=== PATIENT | female | born 1985 | race Caucasian/White ===

== ENCOUNTER 2020-07-21 10:23 | Emergency (ER) | payer OTHER, SELFPAY ==
--- NOTE | ~2020-07-21 | CT_ITS ---
EXAMINATION: CT GI BLEEDING SCAN/ABDOMEN AND PELVIS CLINICAL INFORMATION: GI bleeding. Bright red blood. Question rectal bleeding COMPARISON: None TECHNIQUE: 5 mm thin axial and 2 minutes and coronal and sagittal images of abdomen and pelvis were obtained without and with 80 mL Omnipaque 350. DLP 805 FINDINGS: The lung bases are clear. The heart size is normal. The liver is homogeneous in density, normal size and shape. No focal lesion seen. No abnormal enhancement. No intrahepatic ductal dilatation. The gallbladder is contracted and appears unremarkable. Visualized spleen, pancreas and bilateral adrenal glands are symmetrical. There are bilateral nephrolithiasis. The largest radiopaque calculi midpole left kidney measures 4 mm and is 7 cm from the posterior skin line. Largest radiopaque calculi mid pole right kidney measures 6 mm and is approximately 6.1 cm from the posterior skin line. No caliectasis or hydronephrosis. Postcontrast there are symmetrical bilateral nephrograms with the kidneys appearing normal size and shape. No enhancing renal mass, cyst or hydronephrosis seen. The abdominal aorta is normal course and caliber. No retroperitoneal lymph nodes or mass seen. There is moderate scattered stool seen throughout the colon without distention. The small bowel loops are normal caliber. There is no inflammatory process seen in the abdomen. On postcontrast imaging there is no abnormal hypodense contrast or blood pooling seen within the rectum, sigmoid or the colon. There is a small umbilical hernia. The appendix lies in the right pelvis on axial image 60/90 and appears normal caliber. Imaging to the pelvis reveals no significant abnormality. The uterus is anteverted and retroflexed no lesion seen. There is no free fluid. Scattered phleboliths are seen in the pelvis. CT/CT gi bleed abd pel wo/w con IMPRESSION: No abnormal contrast extravasation seen in the rectum or sigmoid colon to suspect any bleed. Moderate constipation. Bilateral nephrolithiasis without caliectasis or hydronephrosis.
[2020-07-21 11:04] VITALS: BP 98/74; PULSE 90; RESP 16; TEMP 37; O2SAT 100; BMI 23.8
--- NOTE | 2020-07-21 13:12 | PC.NURSE ---
AMBULATORY TO MAIN ED RM 18, REPORT TO FELISHA DAVIS
[2020-07-21] MEDS: 0.9 % Sodium Chloride 1,000 ML 999 ML IVCONT (13:37)
[2020-07-21 13:40] LABS: MANUAL DIFF FLAG NO
[2020-07-21 13:43] LABS: Basophils Absolute Auto 0.1 X10*3/uL (0.0-0.2); Basophils Percent Auto 0.6 % (0-2); Eosinophils Absolute Auto 0.1 X10*3/uL (0.0-0.4); Eosinophils Percent Auto 1.5 % (0-4); Hematocrit 36.3 % (37-47); Hemoglobin 11.2 g/dl (12.0-16.0); Imm Gran Abs Auto 0.01 X10*3/uL (0.00-0.03); Imm Gran Pct Auto 0.1 % (0.0-0.4); Lymphocytes Absolute Auto 2.2 X10*3/uL (1.2-4.9); Lymphocytes Percent Auto 28.6 % (20-40); Mean Corpuscular HGB Conc 30.9 g/dl (31.0-35.0); Mean Corpuscular Hemoglobin 24.5 pg (27.0-33.0); Mean Corpuscular Volume 79.3 fL (80-98); Mean Platelet Volume 9.3 fL (9.4-12.3); Monocytes Absolute Auto 0.5 X10*3/uL (0.1-1.2); Monocytes Percent Auto 6.1 % (2-11); Neutrophils Absolute Auto 4.9 X10*3/uL (2.0-8.3); Neutrophils Percent Auto 63.1 % (45-73); Platelet Count 361 X10*3/uL (160-400); Red Blood Count 4.58 X10*6/uL (4.20-5.50); Red Cell Distribution Width 15.1 % (11.0-16.0); White Blood Count 7.8 X10*3/uL (4.8-10.8)
[2020-07-21 13:48] LABS: INTERNATIONAL NORM RATIO 1.1 (0.9-1.1); Prothrombin Time 13.2 SEC (10.8-13.0)
[2020-07-21 13:50] LABS: OBS Int Ctl Valid YES; OBS1 POSITIVE (NEGATIVE)
[2020-07-21 13:51] LABS: Partial Thromboplastin Time 32.5 SEC (24.1-38.0)
[2020-07-21 14:29] LABS: Alanine Aminotransferase 31 U/L (0-31); Albumin Level 4.4 g/dL (3.5-5.0); Alkaline Phosphatase 86 U/L (39-117); Anion Gap 11 (12-20); Aspartate Amino Transferase 17 U/L (5-31); Bilirubin Direct < 0.2 mg/dL (0.0-0.5); Bilirubin Total 0.5 mg/dL (0.0-1.0); Blood Urea Nitrogen 12 mg/dL (9-16); Calcium 9.3 mg/dL (8.4-10.2); Carbon Dioxide 26 mmol/L (22-29); Chloride 103 mmol/L (96-108); Creatinine Clr Calc Pharmacy 95.3; Estimated Glomerular Filt Rate > 60; Glucose Random 92 mg/dL (60-115); Potassium 4.4 mmol/L (3.3-5.1); Sodium 136 mmol/L (135-145); Total Protein 7.5 g/dL (6.5-8.0)
[2020-07-21 14:36] LABS: HCG Quantitative < 2 mIU/mL
[2020-07-21 14:48] VITALS: BP 110/74; PULSE 91; RESP 18; TEMP 37.1; O2SAT 100
--- NOTE | 2020-07-21 15:28 | ED_ITS ---
HPI - GI Bleed General Chief complaint: General Medical Stated complaint: rectal bleeding x 3 months Time Seen by Provider: 07/21/20 12:32 Source: patient Mode of arrival: ambulatory Limitations: no limitations History of Present Illness HPI Narrative: 34-year-old female with a past medical history of hemorrhoids pr esenting to the ED with complaints of rectal bleeding almost daily for the past 3 months with bright red blood mixed in the stools. Denies any fevers, chills, dizziness, headaches, abdominal pain, straining or constipation or diarrhea or any other symptoms complaints or concerns at this time. Denies using any Pepto- Bismol. Patient denies being on any blood thinners. Denies any rectal intercourse or trauma. MD complaint: blood streaked emesis and blood streaked stool Onset (ago): month(s) (Almost daily for the past 3 months) Pain Consistency: constant Severity: moderate Relieving factors: none Exacerbating factors: bowel movement Context: hemorrhoids Associated symptoms: denies other symptoms Treatments Prior to Arrival: none Related Data Previous Rx's Medication Instructions Recorded docusate sodium [Colace] 100 mg PO BID PRN #30 cap 07/21/20 hydrocortisone acetate [Anusol-HC] 25 mg MO BID #12 ea 07/21/20 Allergies Allergy/AdvReac Type Severity Reaction Status Date / Time No Known Allergies Allergy Unknown Verified 07/21/20 11:10 Review of Systems Review of Systems: Constitutional : No Weight loss, No Fever, No Chills, No Night Sweats, No Fatigue, No Malaise ENT/Mouth: No ear pain, No sore throat, No Difficulty swallowing Cardiovascular : No Chest Pain, No SOB, No Dyspnea on Exertion, No Orthopnea, NoEdema, No Palpitations Respiratory : No Cough, No Sputum, No Wheezing, No Dyspnea Gastrointestinal : + Hematochezia, No Nausea, No Vomiting, No Diarrhea, Noabdominal Pain, No Melena Genitourinary : No irregular bleeding, No Dysuria, No Urinary Frequency, No Hematuria,No Urinary Incontinence, No Urgency, No Flank Pain Musculoskeletal : No joint pain, No Myalgias, No Joint Swelling Skin : No Skin Lesions, No rash Neuro : No Weakness, No Numbness, No Paresthesias, No Loss of Consciousness, NoDizziness, No Headache Psych : No Social Issues, Heme/Lymph: No Bruising, No Bleeding,No Lymphadenopathy Endocrine : No Polyuria, No Polydipsia, No Temperature Intolerance Yes all other systems are reviewed and are negative [facility] Past Medical History Attestation statement: The following information was validated with the patient. Medical History Hemorrhoids Social History Social History Smoked in Last 30 Days: No Use of substances other than those prescribed or required for medical reasons: No Advance Directives: No Advance Directives Information Provided: No Physical Exam Vital Signs: Vital Signs: Last Vital Signs Temp 98.7 F 07/21/20 14:48 Pulse 91 07/21/20 14:48 Resp 18 07/21/20 14:48 BP 110/74 07/21/20 14:48 Pulse Ox 100 07/21/20 14:48 Body Mass Index 23.8 vital signs have been reviewed as normal and appeared to be correct. Blood pressure normal. Heart rate normal. Respiration rate normal. Temperature normal. Oxygen saturation normal. Appearance: Alert. Oriented X3. No acute distress. Head: Normal external exam. Normocephalic. Eyes: PERRLA. EOMI. Conjunctiva and sclera normal. Eyelids normal. ENT: Pharynx normal. Uvula midline. Moist mucous membranes. Neck: Normal inspection. Neck supple. FROM. No adenopathy. No meningeal signs. CVS: Normal heart rate and rhythm. Heart sound normal. No murmurs noted. Pulses normal throughout. Respiratory: No respiratory distress. Painless inspiration. Breath sounds normal. No wheezes/rales/rhonchi noted. Chest nontender. No accessory muscle usage noted or decreased air movement noted. Abdomen: Soft and nontender. Nondistended. No guarding. No rigidity. Bowel sounds normal in all 4 quadrants. No distention noted. No organomegaly noted. No visible injury noted. No rebound tenderness. Negative Rovsing sign. Negative obturator's sign. Negative psoas sign. Negative Kemp sign. : Chaperoned by FELISHA Hernandez. Normal external exam. No external hemorrhoids or fissure noted. Normal rectal tone/sphincter. Not consistent with rectal prolapse. No fecal impaction noted. No lesions noted. No fistula/excoriations/mass/laceration/tenderness noted. Normal external visual inspection. Heme-positive stool with brown color stools. Patient had bright red blood on rectal exam mixed in with stool. Back: No CVA tenderness. Full range of motion noted. Skin: Skin warm and dry. Normal skin color. Normal skin turgor. No rashes/lesions/lacerations noted. Extremities: Extremities exhibit normal range of motion. Extremities nontender. Neuro: Oriented X 3. No motor deficit. No sensory deficit. Reflexes normal. Course Course Course Narrative: 4pm 34-year-old female with a past medical history of hemorrhoids presenting to the ED with complaints of rectal bleeding almost daily for the past 3 months with bright red blood mixed in the stools. - on exam patient is alert and oriented x3. Not in any acute distress. Vital signs are stable within normal limits. Lungs clear to auscultation. CV RRR. Abdomen is soft and nontender. Rectal exam patient has normal rectal tone/normal sphincter. No fissures/external hemorrhoids noted. Questioning internal bleeding hemorrhoids. Patient positive for stool occult. - labs obtained and patient with mild anemia no prior labs to compare to at this time. Positive stool occult. Otherwise all other labs are within normal limits. UA had 40 ketones otherwise no evidence of UTI and negative serum quant and UHCG. Patient received 1 L of IV fluids. Is tolerating secretions well. - awaiting CT scan of abdomen and pelvis with IV contrast with GI bleed protocol will re-evaluate. Reevaluation(s) Reevaluation #1: - CT scan of abdomen and pelvis revealed constipation and bilateral kidney stones otherwise no other acute processes. Patient with possibly internal hemorrhoids versus stool occult bleed. Will DC home with s tool softener and hemorrhoid cream and GI referral. I also instructed the patient to return if worsening symptoms or any new symptoms arrive and to follow-up with GI. Patient understands agrees with this plan. Time: 16:26 MDM - GI Bleed Differential Diagnosis Differential diagnosis: Likely hemorrhoids, Lower gastrointestinal hemorrhage, hematochezia and anal fissure Medical Records Attestation: I reviewed the patient's medical records. Lab Data Attestation: I reviewed the patient's lab results. Result diagrams: 07/21/20 13:35 07/21/20 13:59 Labs: Lab Results 07/21/20 07/21/20 07/21/20 Range/Units 13:35 13:35 13:35 WBC 7.8 (4.8-10.8) X10*3/uL RBC 4.58 (4.20-5.50) X10*6/uL Hgb 11.2 L (12.0-16.0) g/dl Hct 36.3 L (37-47) % MCV 79.3 L (80-98) fL MCH 24.5 L (27.0-33.0) pg MCHC 30.9 L (31.0-35.0) g/dl RDW 15.1 (11.0-16.0) % Plt Count 361 (160-400) X10*3/uL MPV 9.3 L (9.4-12.3) fL Immature Gran % (Auto) 0.1 (0.0-0.4) % Neut % (Auto) 63.1 (45-73) % Lymph % (Auto) 28.6 (20-40) % [place] % (Auto) 6.1 (2-11) % Eos % (Auto) 1.5 (0-4) % Baso % (Auto) 0.6 (0-2) % Lymph # (Auto) 2.2 (1.2-4.9) X10*3/uL [place] # (Auto) 0.5 (0.1-1.2) X10*3/uL Eos # (Auto) 0.1 (0.0-0.4) X10*3/uL Baso # (Auto) 0.1 (0.0-0.2) X10*3/uL Abs Immat Gran (auto) 0.01 (0.00-0.03) X10*3/uL Absolute Neuts (auto) 4.9 (2.0-8.3) X10*3/uL Absolute Nucleated RBC 0.000 (0.0-0.012) X10*3/uL Nucleated RBC % (auto) 0.0 (0.0-0.2) /100WBC PT 13.2 H (10.8-13.0) SEC INR 1.1 (0.9-1.1) APTT 32.5 (24.1-38.0) SEC Sodium (135-145) mmol/L Potassium (3.3-5.1) mmol/L Chloride (96-108) mmol/L Carbon Dioxide (22-29) mmol/L Anion Gap (12-20) BUN (9-16) mg/dL Creatinine (0.5-1.4) mg/dL Estim Creat Clear Calc Estimated GFR Random Glucose (60-115) mg/dL Calcium (8.4-10.2) mg/dL Magnesium (1.6-2.6) mg/dL Total Bilirubin (0.0-1.0) mg/dL Direct Bilirubin (0.0-0.5) mg/dL AST (5-31) U/L ALT (0-31) U/L Alkaline Phosphatase (39-117) U/L Total Protein (6.5-8.0) g/dL Albumin (3.5-5.0) g/dL Beta HCG, Quant mIU/mL Urine Color Urine Appearance Urine pH (5.0-8.0) Ur Specific Reese (1.005-1.025) Urine Protein (NEG-TRACE) MG/DL Urine Glucose (UA) (NEG) MG/DL Urine Ketones (NEG) MG/DL Urine Blood (NEG) Urine Nitrite (NEG) Ur Leukocyte Esterase (NEG) Urine RBC (0) /HPF Urine WBC (0-4) /HPF Urine WBC Clumps Ur Squamous Epith Cells /LPF Urine Bacteria /LPF Hyaline Casts /LPF Urine Mucus /LPF Stool Occult Blood POSITIVE (NEGATIVE) 07/21/20 07/21/20 Range/Units 13:59 15:21 WBC (4.8-10.8) X10*3/uL RBC (4.20-5.50) X10*6/uL Hgb (12.0-16.0) g/dl Hct (37-47) % MCV (80-98) fL MCH (27.0-33.0) pg MCHC (31.0-35.0) g/dl RDW (11.0-16.0) % Plt Count (160-400) X10*3/uL MPV (9.4-12.3) fL Immature Gran % (Auto) (0.0-0.4) % Neut % (Auto) (45-73) % Lymph % (Auto) (20-40) % [place] % (Auto) (2-11) % Eos % (Auto) (0-4) % Baso % (Auto) (0-2) % Lymph # (Auto) (1.2-4.9) X10*3/uL [place] # (Auto) (0.1-1.2) X10*3/uL Eos # (Auto) (0.0-0.4) X10*3/uL Baso # (Auto) (0.0-0.2) X10*3/uL Abs Immat Gran (auto) (0.00-0.03) X10*3/uL Absolute Neuts (auto) (2.0-8.3) X10*3/uL Absolute Nucleated RBC (0.0-0.012) X10*3/uL Nucleated RBC % (auto) (0.0-0.2) /100WBC PT (10.8-13.0) SEC INR (0.9-1.1) APTT (24.1-38.0) SEC Sodium 136 (135-145) mmol/L Potassium 4.4 (3.3-5.1) mmol/L Chloride 103 (96-108) mmol/L Carbon Dioxide 26 (22-29) mmol/L Anion Gap 11 L (12-20) BUN 12 (9-16) mg/dL Creatinine 0.67 (0.5-1.4) mg/dL Estim Creat Clear Calc 95.3 Estimated GFR > 60 Random Glucose 92 (60-115) mg/dL Calcium 9.3 (8.4-10.2) mg/dL Magnesium 2.0 (1.6-2.6) mg/dL Total Bilirubin 0.5 (0.0-1.0) mg/dL Direct Bilirubin < 0.2 (0.0-0.5) mg/dL AST 17 (5-31) U/L ALT 31 (0-31) U/L Alkaline Phosphatase 86 (39-117) U/L Total Protein 7.5 (6.5-8.0) g/dL Albumin 4.4 (3.5-5.0) g/dL Beta HCG, Quant < 2 mIU/mL Urine Color YELLOW Urine Appearance CLEAR Urine pH 6.5 (5.0-8.0) Ur Specific Reese 1.020 (1.005-1.025) Urine Protein NEG (NEG-TRACE) MG/DL Urine Glucose (UA) NEG (NEG) MG/DL Urine Ketones 40 (NEG) MG/DL Urine Blood TRACE (NEG) Urine Nitrite NEG (NEG) Ur Leukocyte Esterase NEG (NEG) Urine RBC 1-4 (0) /HPF Urine WBC 1-4 (0-4) /HPF Urine WBC Clumps NOTED Ur Squamous Epith Cells 2+ /LPF Urine Bacteria 2+ /LPF Hyaline Casts 0-2 /LPF Urine Mucus 2+ /LPF Stool Occult Blood (NEGATIVE) Imaging Data CT scan of abdomen and pelvis GI bleed protocol: Attestation: I personally reviewed and interpreted this imaging study as follows: Radiologist's impression: FINDINGS: The lung bases are clear. The heart size is normal. The liver is homogeneous in density, normal size and shape. No focal lesion seen. No abnormal enhancement. No intrahepatic ductal dilatation. The gallbladder is contracted and appears unremarkable. Visualized spleen, pancreas and bilateral adrenal glands are symmetrical. There are bilateral nephrolithiasis. The largest radiopaque calculi midpole left kidney measures 4 mm and is 7 cm from the posterior skin line. Largest radiopaque calculi mid pole right kidney measures 6 mm and is approximately 6.1 cm from the posterior skin line. No caliectasis or hydronephrosis. Postcontrast there are symmetrical bilateral nephrograms with the kidneys appearing normal size and shape. No enhancing renal mass, cyst or hydronephrosis seen. The abdominal aorta is normal course and caliber. No retroperitoneal lymph nodes or mass seen. There is moderate scattered stool seen throughout the colon without distention. The small bowel loops are normal caliber. There is no inflammatory process seen in the abdomen. On postcontrast imaging there is no abnormal hypodense contrast or blood pooling seen within the rectum, sigmoid or the colon. There is a small umbilical hernia. The appendix lies in the right pelvis on axial image 60/90 and appears normal caliber. Imaging to the pelvis reveals no significant abnormality. The uterus is anteverted and retroflexed no lesion seen. There is no free fluid. Scattered phleboliths are seen in the pelvis. CT/CT gi bleed abd pel wo/w con IMPRESSION: No abnormal contrast extravasation seen in the rectum or sigmoid colon to suspect any bleed. Moderate constipation. Bilateral nephrolithiasis without caliectasis or hydronephrosis. Discharge Plan Discharge Clinical Impression: Fecal occult blood test positive, Hemorrhoids, Constipation, Anemia, Bilateral nephrolithiasis Patient Disposition: Home, Self-Care Instructions: Gastrointestinal Bleeding (ED), Constipation (ED), Rectal Bleeding (ED), Kidney Stones (ED), Anemia (ED) Prescriptions: New docusate sodium [Colace] 100 mg capsule 100 mg PO BID PRN (Reason: Constipation) Qty: 30 RF: 0 hydrocortisone acetate [Anusol-HC] 25 mg suppository 25 mg MO BID Qty: 12 RF: 0 Referrals: Seth Martinez MD [Physician] - 2 days (Call to make an appointment within the next few weeks) Stand Alone Forms: Work/School Release Print Language: [place]
[2020-07-21 15:39] LABS: Glucose Urine UA NEG (NEG); Leukocyte Esterase Urine NEG (NEG); Nitrite Urine NEG (NEG); PH 6.5 (5.0-8.0); Urine Blood TRACE (NEG); Urine Ketones 40 MG/DL (NEG); Urine Protein NEG (NEG-TRACE)
[2020-07-21 15:45] LABS: Appearance Urine CLEAR; Color Urine YELLOW
[2020-07-21 16:20] LABS: Bacteria Urine 2+ /LPF; Squamous Epithelial Cell Urine 2+ /LPF
[2020-07-21 16:21] LABS: Hyaline Casts Urine 0-2 /LPF; Mucus Urine 2+ /LPF; WBC Clumps Urine NOTED
[2020-07-21 16:38] LABS: UPreg QC Valid YES; Urine Pregnancy NEGATIVE (NEGATIVE)
== END 2020-07-21 16:50 | disposition home or self-care (01) ==
PROVIDERS: Physician Assistant Medical; Emergency Provider Emergency Medicine Emergency Medical Services
DX: R19.5 Other fecal abnormalities (principal); K64.9 Unspecified hemorrhoids; D50.0 Iron deficiency anemia secondary to blood loss (chronic); K59.00 Constipation, unspecified; N20.0 Calculus of kidney
CPT/HCPCS: 36415; 74178; 80048; 80076; 81001; 81025; 82272; 83735; 84702; 85025; 85610; 85730; 96360; 99284; Q9967

== ENCOUNTER 2020-11-14 12:21 | Outpatient (REF) | payer OTHER, SELFPAY ==
[2020-11-14 13:55] LABS: MANUAL DIFF FLAG NO
[2020-11-14 14:01] LABS: Basophils Absolute Auto 0.1 X10*3/uL (0.0-0.2); Basophils Percent Auto 0.5 % (0-2); Eosinophils Absolute Auto 0.2 X10*3/uL (0.0-0.4); Eosinophils Percent Auto 2.1 % (0-4); Hematocrit 34.7 % (37-47); Hemoglobin 10.5 g/dl (12.0-16.0); Imm Gran Abs Auto 0.03 X10*3/uL (0.00-0.03); Imm Gran Pct Auto 0.3 % (0.0-0.4); Lymphocytes Absolute Auto 2.1 X10*3/uL (1.2-4.9); Lymphocytes Percent Auto 23.1 % (20-40); Mean Corpuscular HGB Conc 30.3 g/dl (31.0-35.0); Mean Corpuscular Hemoglobin 23.1 pg (27.0-33.0); Mean Corpuscular Volume 76.3 fL (80-98); Mean Platelet Volume 9.9 fL (9.4-12.3); Monocytes Absolute Auto 0.6 X10*3/uL (0.1-1.2); Neutrophils Absolute Auto 6.2 X10*3/uL (2.0-8.3); Platelet Count 427 X10*3/uL (160-400); Red Blood Count 4.55 X10*6/uL (4.20-5.50); Red Cell Distribution Width 14.9 % (11.0-16.0); White Blood Count 9.2 X10*3/uL (4.8-10.8)
[2020-11-14 14:22] LABS: Iron 17 mcg/dL (30-160); Percent Iron Saturation 3 % (15-50); Total Iron Binding Capacity 495 mcg/dL (228-428); Unsaturated Iron Binding 478 ug/dL
[2020-11-14 14:33] LABS: TSH reflex Free T4 0.28 uIU/mL (0.32-4.0)
[2020-11-14 15:06] LABS: Free T4 (Free Thyroxine) 1.02 ng/dL (0.71-1.85)
== END 2020-11-14 12:22 | disposition home or self-care (01) ==
LOC: HO.HMGCLDS 12:21
PROVIDERS: PCP Internal Medicine; Visit Provider Internal Medicine
DX: K59.00 Constipation, unspecified (principal); D64.9 Anemia, unspecified; K64.9 Unspecified hemorrhoids; K62.89 Other specified diseases of anus and rectum
CPT/HCPCS: 36415; 83540; 84439; 84443; 85025

== ENCOUNTER → 2020-12-12 15:47 | Outpatient (BNVA) | payer OTHER, SELFPAY | PROVIDERS: PCP Internal Medicine; Referring Provider Internal Medicine; Visit Provider Surgery | DX: K60.2 Anal fissure, unspecified (principal) | CPT/HCPCS: 99202 ==

== ENCOUNTER → 2020-12-14 15:03 | Outpatient (BNVA) | payer OTHER, SELFPAY | PROVIDERS: PCP Internal Medicine; Visit Provider Physician Assistant ==

== ENCOUNTER → 2020-12-29 16:03 | Outpatient (BNVA) | payer OTHER, SELFPAY | PROVIDERS: PCP Internal Medicine; Referring Provider Internal Medicine; Visit Provider Surgery | DX: K60.2 Anal fissure, unspecified (principal); K59.00 Constipation, unspecified | CPT/HCPCS: 99212 ==

== ENCOUNTER 2021-01-24 06:07 | Day surgery (SDC) | payer OTHER, SELFPAY ==
[2021-01-18 13:50] VITALS: BMI 22.8
--- NOTE | 2021-01-23 10:24 | HO.ANESPROP2 ---
Documented by User: Alexandra Hawkins NP 01/23/21 10:25 HPI - Anesthesia Eval Consult details Narrative: 35yo F for EUA, Poss Lateral Internal Sphincterotomy, Poss Hemorrhoidectomy PMFSH Active Problems Active Problems: All Active Problems (Updated 12/15/20 @ 15:31 by Shelly Rodriguez PA-C) Anal fissure (Acute) GI bleed (Acute) Constipation (Acute) Anemia (Acute) Hemorrhoids (Acute) Past Medical History Medical History Anal fissure Anemia Constipation GI bleed Hemorrhoids Family History Family History Father Lung cancer Surgical History Surgical History History of Social History Social History Household Members: Significant Other Household Members Other:: 3 kids Alcohol intake: current Alcohol intake frequency: does not drink Patient Tobacco Use Status: Never used Tobacco e-Cigarette/Vaping Use: Never Used Advance Directives Information Provided: No Advance Directives on File: No Current occupational status: employed Current occupation: Insurance Meds Allergies Allergy/AdvReac Type Severity Reaction Status Date / Time No Known Allergies Allergy Unknown Verified 12/29/20 16:09 Home Medications Medication Instructions Recorded Confirmed Last Taken Type norethindrone 1 mg-ethinyl 1 tab PO DAILY 12/12/20 01/18/21 Unknown History estradiol 10 mcg (24)-iron 10 mcg(2) tablet (Lo Loestrin Fe) polyethylene glycol 3350 17 17 g PO DAILY 12/14/20 01/18/21 Unknown History gram/dose oral powder (Miralax) Exam Exam Date and Time: January 23, 2021 1024 Height,Weight and Vital Signs: Height 5 ft 2 in Weight 56.6 kg Pertinent Lab Results Pertinent Lab Results: Laboratory Tests 11/14/20 12:28 WBC 9.2 Hgb 10.5 L Hct 34.7 L Plt Count 427 H Assessment and Plan Assessment Anesthesia Assessment: Chart Reviewed Documented by User: Lianna Sanders MD 01/24/21 07:07 [facility] Past Medical History Medical History Anal fissure Anemia Constipation GI bleed Hemorrhoids Family History Family History Father Lung cancer Family history of problems with anesthesia: No Surgical History Surgical History History of History of Problems with Anesthesia: No Social History Social History Household Members: Significant Other Household Members Other:: 3 kids Alcohol intake: current Alcohol intake frequency: does not drink Patient Tobacco Use Status: Never used Tobacco e-Cigarette/Vaping Use: Never Used Advance Directives Information Provided: No Advance Directives on File: No Current occupational status: employed Current occupation: Insurance Meds Allergies Allergy/AdvReac Type Severity Reaction Status Date / Time No Known Allergies Allergy Unknown Verified 12/29/20 16:09 Home Medications Medication Instructions Recorded Confirmed Last Taken Type norethindrone 1 mg-ethinyl 1 tab PO DAILY 12/12/20 01/18/21 Unknown History estradiol 10 mcg (24)-iron 10 mcg(2) tablet (Lo Loestrin Fe) polyethylene glycol 3350 17 17 g PO DAILY 12/14/20 01/18/21 Unknown History gram/dose oral powder (Miralax) Exam Airway Mallampati Class: I TM Dist: >3cm Neck ROM: Full Assessment and Plan Assessment Anesthesia Assessment: Anesthesia Plan Discussed Final Anesthetic Review Family History of Problems with Anesthesia: No History of Problems with Anesthesia: No NPO: Yes ASA Class: II Final Preanesthetic Review: No Changes in Pt Med Stat, Meds/Allgs Chart Reviewed, Consent Obtained/Reviewed and Anes Risks/Benef Reviewed Patient Risk: Low Procedure Risk: Low Assessment/Block/Sedation in SS: Assess/Block/Sedation-SS Anesthetic Plan Anesthetic Plan: MAC: Disposition: Standard PACU
[2021-01-24 06:29] VITALS: BP 110/71; PULSE 105; RESP 16; TEMP 37.1; O2SAT 98
[2021-01-24 06:34] LABS: UPreg QC Valid YES; Urine Pregnancy NEGATIVE (NEGATIVE)
[2021-01-24] MEDS: Lactated Ringers 1,000 ML 100 ML IVCONT (06:41)
--- NOTE | 2021-01-24 07:20 | MHC.SHP ---
Pre-Procedural Eval Section A Date of Service: 01/24/21 Section B Chief Complaint: Anal Fissure Allergies: Allergies Allergy/AdvReac Type Severity Reaction Status Date / Time No Known Allergies Allergy Unknown Verified 12/29/20 16:09 Plan I have reviewed the history and physical and performed a pertinent physical examination on my patient. No changes have occurred unless specified.
--- NOTE | 2021-01-24 08:05 | W.PM.OPN ---
Operative Note Operative Note Date of Service: 01/24/21 Narrative: Preop diagnosis: anal pain, likely anal fissure Postop diagnosis: Anal canal lesions, question verruca, with note of external hemorrhoids; no significant fissure noted Procedure: Exam under anesthesia, biopsy of anal canal lesions Surgeon: Edward Montague MD Logging Truck Driver:NIKKI Landrum student The patient is a 35-year-old female who had been seeing in the office because of severe anal pain. My impression was that she had an anal fissures wide started on rectum. However she says that this had provided relief so I scheduled her for exam anesthesia and possible sphincterotomy. I explained to the technique of this procedure as well as the risks, benefits, and alternatives and she had given consent. She was brought to the operating room placed in prone yordan-knife position under monitored anesthesia care. A surgical time-out was done. The perianal area was prepped and draped in the usual sterile fashion. The buttocks had been retracted with wide tape laterally. Patient received Cefotan 2 g IV preoperatively I then infiltrated the perianal area with lidocaine 1%. Examination of the anal orifice revealed an external hemorrhoid on the right side posteriorly. I retracted the anal canal and I did not see any significant posterior midline fissure. Inserted abuse Pizarro retractor and examined the anal canal circumferentially. There was actually note of multiple small polypoid lesions circumferentially in the anus. This appeared to bleed easily and were friable. I proceeded to excise part of this lesions using Metzenbaum scissors and sent these for pathology. Examination of the posterior midline tender midline did not reveal any significant fissure. She did have some hemorrhoid tissue as well on both the left and right side, mix of external and internal. These were non bulky. I cauterized some of this small lesions for hemostasis. I then inserted I rolled Gelfoam for further hemostasis into the anal canal I infiltrated the perianal with Marcaine 0.5% for postop analgesia and the procedure was completed The patient tolerated procedure well. There were no complications noted. Initial final counts of sponges and instruments were correct. Estimated blood loss about 15 cc. The plan is to wait for the final path report. We can then come up with the next plan in her care. I will see her in the office to discuss this.
[2021-01-24 08:12] VITALS: BP 122/73; PULSE 124; RESP 16; TEMP 36.8; O2SAT 100
--- NOTE | 2021-01-24 08:12 | PM.OP ---
Brief Operative Note Date of Service: 01/24/21 Pre-op diagnosis: Anal pain, possible fissure Post-op diagnosis: other (Anal canal lesions ) Procedure: Exam under anesthesia, biopsy of anal canal lesions Surgeon: Edward Montague MD Anesthesia: MAC Was an Paving Plant Operator used for this Procedure?: No Estimated blood loss (mL): 15 Pathology: other (Anal canal lesions) Condition: stable Disposition: PACU
[2021-01-24 08:27] VITALS: BP 120/78; PULSE 94; RESP 16; TEMP 36.8; O2SAT 100
[2021-01-24] MEDS: Acetaminophen 325 MG TABLET 650 MG PO (08:42)
[2021-01-24 08:47] VITALS: BP 123/80; PULSE 96; RESP 18; TEMP 36.8; O2SAT 100
== END 2021-01-24 09:10 | disposition home or self-care (01) ==
PROVIDERS: Nurse Practitioner; PCP Internal Medicine; Visit Provider Surgery
PROC: (CPT 46922; principal; 2021-01-24 07:30)
DX: C21.1 Malignant neoplasm of anal canal (principal); K64.4 Residual hemorrhoidal skin tags
CPT/HCPCS: 46922; 81025; 88305; J2250; J3010

== ENCOUNTER 2021-02-06 11:20 | Outpatient (REF) | payer OTHER, SELFPAY ==
[2021-02-06 13:21] LABS: Blood Urea Nitrogen 11 mg/dL (9-16); Estimated Glomerular Filt Rate > 60
[2021-02-06 13:58] LABS: Folate 16.7 ng/mL (> or = 4.0); Vitamin B12 < 146 pg/mL (200-900)
== END 2021-02-06 11:21 | disposition home or self-care (01) ==
LOC: HO.LAB 11:20
PROVIDERS: Physician Assistant; PCP Internal Medicine; Visit Provider Surgery
DX: C20 Malignant neoplasm of rectum (principal); D64.9 Anemia, unspecified; Z79.899 Other long term (current) drug therapy
CPT/HCPCS: 36415; 82565; 82607; 82746; 84520; 99212

== ENCOUNTER → 2021-02-14 11:46 | Outpatient (BNVA) | payer OTHER, SELFPAY | PROVIDERS: PCP Internal Medicine; Referring Provider Internal Medicine; Visit Provider Physician Assistant ==

== ENCOUNTER 2021-02-27 09:57 | Outpatient (REF) | payer OTHER, SELFPAY ==
--- NOTE | ~2021-02-27 | CT_ITS ---
EXAMINATION: CT CHEST, ABDOMEN AND PELVIS WITH CONTRAST CLINICAL INFORMATION: Reason for Exam C20 - Malignant neoplasm of rectum COMPARISON: CT of the abdomen done on 07/21/2020. TECHNIQUE: Multidetector volumetric imaging was performed from the thoracic inlet through the pubic symphysis following the administration of: Oral contrast: No Intravenous contrast: 85 mL Omnipaque 350 No contrast reaction reported Sagittal and coronal reformatted images were obtained on the technologist workstation. This CT examination was performed using dose optimization techniques as appropriate, variously including the following: *Automated exposure control. *Adjustment of mA and/or kV according to patient size (this includes techniques or standardized protocols for targeted exams where dose is matched to indication/reason for exam; i.e. extremities or head). *Use of iterative reconstruction technique. Total exam dose-length product 350 mGy-cm FINDINGS: LUNG: No focal consolidation, nodules or masses. PLEURA: No pleural effusion or pneumothorax. MEDIASTINUM: Normal heart size. No pericardial effusion. No hilar or mediastinal lymphadenopathy. VASCULAR: No thoracic aortic aneurysm or dissection. Central pulmonary arteries opacify normally. CHEST WALL/AXILLA: No axillary or internal mammary lymphadenopathy. LIVER, GALLBLADDER, AND BILIARY TREE: The liver is normal in size, shape, and attenuation. No focal hepatic lesion or biliary ductal dilatation is present. The gallbladder is unremarkable with no evidence of radiopaque gallstones, gallbladder wall thickening, or obvious pericholecystic inflammatory changes. PANCREAS: Normal; no mass or surrounding fluid. SPLEEN: Normal size. No focal lesion. ADRENAL GLANDS: Normal; no mass. KIDNEYS AND URETERS: The kidneys are normal in size, shape, and attenuation. No hydronephrosis, or hydroureter. Previously documented multiple bilateral nonobstructing renal calculi are reidentified, the largest on the right measures 6 mm in largest on the left measures 4 mm (better visualized on prior noncontrast study dated 07/21/2020). GASTROINTESTINAL TRACT: Stomach and small bowel non-dilated. No colonic wall thickening or pericolonic inflammatory changes. Normal appendix. Specific note is made of circumferential mural thickening involving the rectum, consistent with clinically known rectal malignancy. ABDOMINAL WALL: No significant hernia is appreciated. LYMPHOVASCULAR STRUCTURES: There are multiple subcentimeter left greater than right pelvic lymph nodes identified, although by size criteria not pathologically enlarged however, may represent metastatic lymphadenopathy in this patient with known rectal malignancy. There are no evidence of any pathologically enlarged bilateral groin or retroperitoneal or mesenteric lymphadenopathy is seen. The aorta is unremarkable. BLADDER: No focal mass or wall thickening seen. No bladder calculi. PELVIC VISCERA: There is no free fluid and/or free air present. OSSEOUS STRUCTURES: No acute or suspicious osseous abnormality. Likely bone island at right femoral head. Subtle compression deformity of superior endplate of T4 and T5 vertebral bodies, of indeterminate etiology. CT/CT abdomen pelvis w con IMPRESSION: 1. No CT evidence of any metastatic disease to the chest. 2. No CT evidence of any metastatic disease to the liver or retroperitoneum. 3. Few subcentimeter indeterminate lymph nodes are noted within the pelvis specifically within the left hemipelvis, although by size criteria not pathologically enlarged however, they may represent subcentimeter metastatic lymphadenopathy, given the presence of clinically known rectal malignancy. 4. Bilateral nonobstructing renal calculi, unchanged since prior study dated 07/21/2020 5. Likely bone island at right femoral head. Subtle compression deformity of superior endplate of T4 and T5 vertebral bodies, of indeterminate etiology.
[2021-02-27] MEDS: iohexoL 350 MG/ML 100 ML INFUS..BTL 85 ML IV (10:55)
== END 2021-02-27 09:58 | disposition home or self-care (01) ==
LOC: HO.CT 09:57
PROVIDERS: PCP Internal Medicine; Visit Provider Surgery
DX: C20 Malignant neoplasm of rectum (principal); Z79.899 Other long term (current) drug therapy
CPT/HCPCS: 71260; 74177; 99212; Q9967

== ENCOUNTER 2021-02-28 08:53 | Day surgery (SDC) | payer OTHER, SELFPAY ==
[2021-02-28] VITALS (8 sets, daily range): BP systolic 104–115; BP diastolic 65–75; PULSE 78–104; RESP 16–17; TEMP 36.8–37.7; O2SAT 96–99; BMI 23.1
--- NOTE | ~2021-02-28 | IR_ITS ---
PROCEDURE: IR INSERTION OF TUNNEL CATHETER CLINICAL INFORMATION: Colorectal cancer. COMPARISON: None. TECHNIQUE: Following explaining ultrasound fluoroscopy-guided placement of tunneled right Port-A-Cath procedure, benefits and risks, a written consent was obtained. Patient was placed supine on fluoroscopy table in IR room. Preliminary ultrasound was obtained through the right neck and imaging documented. An optimal site was selected along the right neck and marked. The entire right neck and right anterior chest wall were cleaned and draped in the usual sterile manner. Under sterile ultrasound guidance, a single wall needle was advanced from a lateral approach and right jugular vein was punctured. After obtaining venous return, a thin guidewire was inserted through the needle and needle withdrawn. A 5 [place] dilator was placed over the guidewire and both the guidewire and the dilator were anchored to the drape with a hemostat. Approximately 1 gauze length anterior and lateral to the neck incision, 1% lidocaine was inserted along the right anterior chest wall and a small incision was performed. With hemostats, a subcutaneous pocket was created and the port hardware was trialed in the pocket. After achieving adequate pocket size, the port hardware was anchored to the skin with two 3-0 nylon sutures. 1% lidocaine was then inserted subcutaneously from the anterolateral chest wall incision to the right neck incision. A blunt tunneler attached to a catheter which in turn was attached to the PORT hardware was tunneled subcutaneously and pulled through the right anterior neck incision. The catheter was then sized to 20 cm. The guidewire along the 5 [place] catheter was removed. A 0.035 J-wire was advanced under fluoroscopy and advanced into the IVC and the 5 [place] dilator was removed. A 6.6 [place] dilator with sheath were advanced over the guidewire. The guidewire and dilator were removed. The catheter was inserted through the peel-away sheath and the peel-away sheath was slowly removed as the catheter was held in position. The port catheter was then checked under fluoroscopy and lies within the mid SVC. A single image was obtained documenting the port and the catheter. The skin incision was sutured with 4-0 absorbable sutures and the right anterior neck incision was sutured with 3-0 absorbable sutures. Steri-Strips were applied and a simple dressing applied at both sites. Patient tolerated the procedure well. Elements of maximal sterile barrier technique followed including use of cap, mask, sterile gown, sterile gloves, a sterile full body drape and hand hygiene. Also followed skin preparation with 2% chlorhexidine for cutaneous antisepsis, and sterile ultrasound preparation with sterile gel and probe cover when applicable. Conscious sedation and patient monitoring was performed during the exam by the IR nurse and the physician. Conscious sedation: 35 minutes. FINDINGS: On preliminary ultrasound imaging there is widely patent right SVC. Approximately 20 cm long 6.6 [place] tunneled portacatheter insertion with its tip in mid SVC. The catheter is ready to use. IR/IR cvc insert tunnel w prt/supervisor public message service IMPRESSION: Successful ultrasound and fluoroscopy-guided placement of right tunneled Port-A-Cath with its tip in mid SVC ready for use.
--- NOTE | ~2021-02-28 | IR_ITS ---
PROCEDURE: IR INSERTION OF TUNNEL CATHETER CLINICAL INFORMATION: Colorectal cancer. COMPARISON: None. TECHNIQUE: Following explaining ultrasound fluoroscopy-guided placement of tunneled right Port-A-Cath procedure, benefits and risks, a written consent was obtained. Patient was placed supine on fluoroscopy table in IR room. Preliminary ultrasound was obtained through the right neck and imaging documented. An optimal site was selected along the right neck and marked. The entire right neck and right anterior chest wall were cleaned and draped in the usual sterile manner. Under sterile ultrasound guidance, a single wall needle was advanced from a lateral approach and right jugular vein was punctured. After obtaining venous return, a thin guidewire was inserted through the needle and needle withdrawn. A 5 [place] dilator was placed over the guidewire and both the guidewire and the dilator were anchored to the drape with a hemostat. Approximately 1 gauze length anterior and lateral to the neck incision, 1% lidocaine was inserted along the right anterior chest wall and a small incision was performed. With hemostats, a subcutaneous pocket was created and the port hardware was trialed in the pocket. After achieving adequate pocket size, the port hardware was anchored to the skin with two 3-0 nylon sutures. 1% lidocaine was then inserted subcutaneously from the anterolateral chest wall incision to the right neck incision. A blunt tunneler attached to a catheter which in turn was attached to the PORT hardware was tunneled subcutaneously and pulled through the right anterior neck incision. The catheter was then sized to 20 cm. The guidewire along the 5 [place] catheter was removed. A 0.035 J-wire was advanced under fluoroscopy and advanced into the IVC and the 5 [place] dilator was removed. A 6.6 [place] dilator with sheath were advanced over the guidewire. The guidewire and dilator were removed. The catheter was inserted through the peel-away sheath and the peel-away sheath was slowly removed as the catheter was held in position. The port catheter was then checked under fluoroscopy and lies within the mid SVC. A single image was obtained documenting the port and the catheter. The skin incision was sutured with 4-0 absorbable sutures and the right anterior neck incision was sutured with 3-0 absorbable sutures. Steri-Strips were applied and a simple dressing applied at both sites. Patient tolerated the procedure well. Elements of maximal sterile barrier technique followed including use of cap, mask, sterile gown, sterile gloves, a sterile full body drape and hand hygiene. Also followed skin preparation with 2% chlorhexidine for cutaneous antisepsis, and sterile ultrasound preparation with sterile gel and probe cover when applicable. Conscious sedation and patient monitoring was performed during the exam by the IR nurse and the physician. Conscious sedation: 35 minutes. FINDINGS: On preliminary ultrasound imaging there is widely patent right SVC. Approximately 20 cm long 6.6 [place] tunneled portacatheter insertion with its tip in mid SVC. The catheter is ready to use. IR/IR us guide venous access IMPRESSION: Successful ultrasound and fluoroscopy-guided placement of right tunneled Port-A-Cath with its tip in mid SVC ready for use.
[2021-02-28 09:27] LABS: UPreg QC Valid YES; Urine Pregnancy NEGATIVE (NEGATIVE)
[2021-02-28 09:44] LABS: MANUAL DIFF FLAG NO
[2021-02-28 09:46] LABS: Basophils Percent Auto 0.5 % (0-2); Eosinophils Absolute Auto 0.1 X10*3/uL (0.0-0.4); Eosinophils Percent Auto 1.5 % (0-4); Hematocrit 30.6 % (37-47); Hemoglobin 9.2 g/dl (12.0-16.0); Imm Gran Abs Auto 0.01 X10*3/uL (0.00-0.03); Imm Gran Pct Auto 0.1 % (0.0-0.4); Mean Corpuscular HGB Conc 30.1 g/dl (31.0-35.0); Mean Corpuscular Hemoglobin 22.2 pg (27.0-33.0); Mean Corpuscular Volume 73.9 fL (80-98); Monocytes Absolute Auto 0.5 X10*3/uL (0.1-1.2); Monocytes Percent Auto 6.2 % (2-11); Neutrophils Absolute Auto 4.8 X10*3/uL (2.0-8.3); Neutrophils Percent Auto 64.7 % (45-73); Platelet Count 421 X10*3/uL (160-400); Red Blood Count 4.14 X10*6/uL (4.20-5.50); Red Cell Distribution Width 15.8 % (11.0-16.0); White Blood Count 7.4 X10*3/uL (4.8-10.8)
[2021-02-28 09:52] LABS: INTERNATIONAL NORM RATIO 1.1 (0.9-1.1); Prothrombin Time 12.4 SEC (9.9-13.0)
[2021-02-28 09:55] LABS: Partial Thromboplastin Time 30.7 SEC (24.1-38.0)
[2021-02-28] MEDS: Lidocaine HCl 1 % MPF 5 ML VIAL SUBCUT (11:58)
[2021-02-28] MEDS: Acetaminophen 325 MG TABLET 650 MG PO (13:49)
== END 2021-02-28 15:04 | disposition home or self-care (01) ==
PROVIDERS: PCP Internal Medicine; Visit Provider Radiology Diagnostic Radiology
DX: C20 Malignant neoplasm of rectum (principal); R53.83 Other fatigue; K59.00 Constipation, unspecified; K64.8 Other hemorrhoids; K64.4 Residual hemorrhoidal skin tags; Z80.1 Family history of malignant neoplasm of trachea, bronchus and lung
CPT/HCPCS: 36415; 36561; 76937; 81025; 85025; 85610; 85730; 99152; 99153; C1769; C1788; C1892; J0690; J1642; J2250; J3010

== ENCOUNTER 2021-03-10 13:33 | Outpatient (REF) | payer OTHER, SELFPAY | END 2021-03-10 13:34 | disposition home or self-care (01) | LOC: HO.MDS 13:33 | PROVIDERS: Visit Provider Internal Medicine Medical Oncology | DX: D50.9 Iron deficiency anemia, unspecified (principal) | CPT/HCPCS: 96365; J1439 ==

== ENCOUNTER 2021-03-15 12:31 | Outpatient (REF) | payer OTHER, SELFPAY | END 2021-03-15 12:32 | disposition home or self-care (01) | LOC: HO.MDS 12:31 | PROVIDERS: Visit Provider Internal Medicine Medical Oncology | DX: D50.9 Iron deficiency anemia, unspecified (principal); C20 Malignant neoplasm of rectum | CPT/HCPCS: 96415; J1439 ==

== ENCOUNTER → 2021-04-19 11:18 | Outpatient (BNVA) | payer OTHER, SELFPAY | PROVIDERS: PCP Internal Medicine; Referring Provider Internal Medicine; Visit Provider Surgery | DX: C20 Malignant neoplasm of rectum (principal) | CPT/HCPCS: 99212 ==

== ENCOUNTER 2024-02-18 15:46 | Emergency (ER) | payer OTHER, SELFPAY ==
[2024-02-18 16:25] VITALS: BP 133/85; PULSE 102; RESP 18; TEMP 37.2; O2SAT 100; BMI 27.3
--- NOTE | 2024-02-18 16:31 | ECG_ITS ---
Test Reason : tachycardia Blood Pressure : / mmHG Vent. Rate : 094 BPM Atrial Rate : 094 BPM P-R Int : 142 ms QRS Dur : 072 ms QT Int : 350 ms P-R-T Axes : 049 041 045 degrees QTc Int : 437 ms Normal sinus rhythm Normal ECG No previous ECGs available Referred By: Selene Bullard Electronically Signed By:RAI ARAYA
--- NOTE | 2024-02-18 16:31 | ED.SKABFB ---
HPI - Skin/Abscess/Foreign Bdy General Chief complaint: Skin/Abscess/Foreign Body Stated complaint: Rash Time Seen by Provider: 02/18/24 19:53 History of Present Illness HPI narrative: Patient complains of a red round bull's eye like rash which she noted under the left breast it started smaller several days ago and now has got bigger it feels a little warm there is some mild discomfort in the area it hurts to touch she has had mild what she describes as cold or flu-like symptoms for a couple of days with body aches fatigue maybe or maybe not a fever but those symptoms went away, and right now she denies any fever chills body aches or any other discomfort her only complaint is the rash Related Data Home Medications ?Medication ?Instructions ?Recorded ?Confirmed norethindrone 1 mg-ethinyl 1 tab PO DAILY 12/12/20 06/12/21 estradiol 10 mcg (24)-iron 10 mcg(2) tablet (Lo Loestrin Fe) polyethylene glycol 3350 17 17 g PO DAILY 12/14/20 06/12/21 gram/dose oral powder (Miralax) Previous Rx's ?Medication ?Instructions ?Recorded docusate sodium 100 mg capsule 100 mg PO BID PRN Constipation #30 07/21/20 (Colace) caps ibuprofen 600 mg tablet 600 mg PO Q6H PRN pain #30 tabs 01/24/21 dexamethasone 4 mg tablet 4 mg PO BID #100 tabs 03/03/21 (Decadron) ondansetron HCl 4 mg tablet 8 mg (2 x 4 mg) PO Q8H PRN Nausea 03/03/21 (Zofran) And Vomiting #60 tabs sodium,potassium,mag sulfates 17.5 See Rx Instructions PO .COMPLEX 04/19/21 gram-3.13 gram-1.6 gram oral soln #354 mL (Suprep Bowel Prep Kit) Magic Mouthwash 5 ml PO QIDACHS #240 mL 04/24/21 Diphen/Lido/Antacid 1:1:1 240 mL suspension omeprazole 20 mg capsule,delayed 20 mg PO DAILY #90 caps 06/22/21 release cephalexin 500 mg tablet 500 mg PO QID 7 days #28 tabs 02/18/24 cetirizine 10 mg capsule 10 mg PO DAILY PRN allergy 02/18/24 symptoms #14 caps doxycycline hyclate 100 mg capsule 100 mg PO BID 7 days #14 caps 02/18/24 Allergies Allergy/AdvReac Type Severity Reaction Status Date / Time No Known Allergies Allergy Unknown Verified 02/18/24 16:28 [facility] [place] Past Medical History Source: nursing notes reviewed Medical History Anal fissure Anemia Constipation GI bleed Hemorrhoids Rectal adenocarcinoma Surgical History History of Family History Family History Father Lung cancer Social History Social History Household Members: Significant Other Household Members Other:: 3 kids Alcohol intake: current Alcohol intake frequency: does not drink Patient Tobacco Use Status: Never used Tobacco e-Cigarette/Vaping Use: Never Used Advance Directives: No Advance Directives Information Provided: No Current occupational status: employed Current occupation: Insurance Physical Exam Vital Signs: Vital Signs: Last Vital Signs Temp 97.3 F 02/18/24 20:26 Pulse 104 H 02/18/24 20:26 Resp 17 02/18/24 20:26 BP 130/80 02/18/24 20:26 Pulse Ox 100 02/18/24 20:26 O2 Del Method Room Air 02/18/24 20:26 BMI result Body Mass Index 27.3 General appearance calm comfortable no acute distress The eyes no redness or discharge pupils equal round reactive to light extraocular motions are intact Neck is supple Chest is clear to auscultation bilateral Extremities full range motion x4 Skin under left breast there is a circular large red area with bull's eye like clearing, the rash is warm to the touch there is some mild tenderness, no fluctuance no discharge no wound, no lymphangitis Left shoulder has full painless range of motion Course Course Course Narrative: This is an RME: Additional HPI, ROS, PE not included below will be deferred to primary provider. RME assessment and note performed by: Selene Bullard PA-C This is a 38-year-old female, with a history of previous rectal cancer currently not undergoing any treatment at this time, presents emergency department with complaints of rash on left breast. Bullseye appearance, however unable to fully visualize area due to limited privacy in triage. Otherwise feeling well. She is tachycardic, ekg ordered. Plan: Labs, EKG, tick panel Patient with red bulls eye rash that is also tender to the touch and warm Possibilities include Lyme cellulitis some other kind of allergic reaction or bug bite so she is covered with doxycycline for possible Lyme disease, Lyme tests are sent, she is also covered with Keflex for possible skin infection and Zyrtec for any possible allergic component Well-appearing patient is discharged Medical Decision Making Lab Data 02/18/24 16:46 02/18/24 16:46 Labs: Lab Results 02/18/24 Range/Units 16:46 WBC 4.7 L (4.8-10.8) X10*3/uL RBC 4.47 (4.20-5.50) X10*6/uL Hgb 13.4 (12.0-16.0) g/dl Hct 38.8 (37.0-47.0) % MCV 86.8 (80.0-98.0) fL MCH 30.0 (27.0-33.0) pg MCHC 34.5 (31.0-35.0) g/dl RDW 12.4 (11.0-16.0) % Plt Count 189 (160-400) X10*3/uL MPV 9.2 L (9.4-12.3) fL Immature Gran % (Auto) 0.2 (0.0-0.4) % Neut % (Auto) 63.6 (45-73) % Lymph % (Auto) 23.0 (20-40) % [place] % (Auto) 12.4 H (2-11) % Eos % (Auto) 0.6 (0-4) % Baso % (Auto) 0.2 (0-2) % Lymph # (Auto) 1.1 L (1.2-4.9) X10*3/uL [place] # (Auto) 0.6 (0.1-1.2) X10*3/uL Eos # (Auto) 0.0 (0.0-0.4) X10*3/uL Baso # (Auto) 0.0 (0.0-0.2) X10*3/uL Abs Immat Gran (auto) 0.01 (0.00-0.03) X10*3/uL Absolute Neuts (auto) 3.0 (2.0-8.3) x10*3/uL Absolute Nucleated RBC 0.000 (0.0-0.012) X10*3/uL Nucleated RBC % (auto) 0.0 (0.0-0.2) /100WBC Sodium 142 (135-145) mmol/L Potassium 3.5 (3.3-5.1) mmol/L Chloride 104 (96-108) mmol/L Carbon Dioxide 29 (22-29) mmol/L Anion Gap 13 (12-20) BUN 16 (9-16) mg/dL Creatinine 0.78 (0.5-1.4) mg/dL Estim Creat Clear Calc 89.9 Estimated GFR > 60 Random Glucose 102 (60-115) mg/dL Calcium 9.9 (8.4-10.2) mg/dL Total Bilirubin 0.4 (0.0-1.0) mg/dL Direct Bilirubin 0.1 (0.0-0.5) mg/dL AST 31 (5-31) U/L ALT 52 H (0-31) U/L Alkaline Phosphatase 106 (39-117) U/L Total Protein 7.8 (6.5-8.0) g/dL Albumin 4.5 (3.5-5.0) g/dL Discharge Plan Discharge Clinical Impression: Rash, skin Patient Disposition: Home, Self-Care Additional Instructions: The rash has some characteristics of a [place] bull's-eye rash so we are treating with doxycycline antibiotic, if there is nausea associated with it it often is relieved by taking the doxycycline with food, but most people tolerate it well Because the rash hurt when I touched it and was warm we are treating with Keflex for possible skin infection For any possible allergic component we are treating with Zyrtec which is an antihistamine Return any time for fever pain spreading redness any worse condition or any concern Tests for Lyme disease are sometimes not positive early in the course so it is probably best to take the full course of doxycycline antibiotic even if the test comes back negative Follow routinely with primary doctor in 1-2 weeks Prescriptions: New doxycycline hyclate 100 mg capsule 100 mg PO BID 7 Days Qty: 14 0RF cetirizine 10 mg capsule 10 mg PO DAILY PRN (Reason: allergy symptoms) Qty: 14 0RF cephalexin 500 mg tablet 500 mg PO QID 7 Days Qty: 28 0RF No Action ibuprofen 600 mg tablet 600 mg PO Q6H PRN (Reason: pain) Qty: 30 0RF docusate sodium [Colace] 100 mg capsule 100 mg PO BID PRN (Reason: Constipation) Qty: 30 0RF ondansetron HCl [Zofran] 4 mg Tablet 8 mg PO Q8H PRN (Reason: Nausea And Vomiting) Qty: 60 6RF dexamethasone [Decadron] 4 mg Tablet 4 mg PO BID Qty: 100 4RF Magic Mouthwash Diphen/Lido/Antacid 1:1:1 240 mL Suspension 5 ml PO QIDACHS Qty: 240 4RF Rx Instructions: Lidocaine Viscous 2 % 80mL; diphenhydramine 12.5 mg/5 mL 80mL; aluminum-mag hydrox-simeth [id number]/5mL 80mL omeprazole 20 mg Capsule,Delayed Release(Dr/Ec) 20 mg PO DAILY Qty: 90 4RF Lo Loestrin Fe 1 mg-10 mcg (24)/10 mcg (2) tablet 1 tab PO DAILY polyethylene glycol 3350 [Miralax] 17 gram/dose powder 17 g PO DAILY Suprep Bowel Prep Kit 17.5-3.13-1.6 gram recon soln See Rx Instructions PO .COMPLEX Qty: 354 0RF Rx Instructions: DILUTE; drink full amount early evening before AND next morning at least 2 hr before procedure; follow w 32 oz. water PO Print Language: French
[2024-02-18 16:54] LABS: MANUAL DIFF FLAG NO
[2024-02-18 17:00] LABS: Basophils Percent Auto 0.2 % (0-2); Eosinophils Percent Auto 0.6 % (0-4); Hematocrit 38.8 % (37.0-47.0); Hemoglobin 13.4 g/dl (12.0-16.0); Imm Gran Abs Auto 0.01 X10*3/uL (0.00-0.03); Imm Gran Pct Auto 0.2 % (0.0-0.4); Lymphocytes Absolute Auto 1.1 X10*3/uL (1.2-4.9); Mean Corpuscular HGB Conc 34.5 g/dl (31.0-35.0); Mean Corpuscular Volume 86.8 fL (80.0-98.0); Mean Platelet Volume 9.2 fL (9.4-12.3); Monocytes Absolute Auto 0.6 X10*3/uL (0.1-1.2); Monocytes Percent Auto 12.4 % (2-11); Neutrophils Percent Auto 63.6 % (45-73); Platelet Count 189 X10*3/uL (160-400); Red Blood Count 4.47 X10*6/uL (4.20-5.50); Red Cell Distribution Width 12.4 % (11.0-16.0); White Blood Count 4.7 X10*3/uL (4.8-10.8)
[2024-02-18 17:21] LABS: Alanine Aminotransferase 52 U/L (0-31); Albumin Level 4.5 g/dL (3.5-5.0); Alkaline Phosphatase 106 U/L (39-117); Anion Gap 13 (12-20); Aspartate Amino Transferase 31 U/L (5-31); Bilirubin Direct 0.1 mg/dL (0.0-0.5); Bilirubin Total 0.4 mg/dL (0.0-1.0); Blood Urea Nitrogen 16 mg/dL (9-16); Calcium 9.9 mg/dL (8.4-10.2); Carbon Dioxide 29 mmol/L (22-29); Chloride 104 mmol/L (96-108); Creatinine Clr Calc Pharmacy 89.9; Estimated Glomerular Filt Rate > 60; Glucose Random 102 mg/dL (60-115); Potassium 3.5 mmol/L (3.3-5.1); Sodium 142 mmol/L (135-145); Total Protein 7.8 g/dL (6.5-8.0)
[2024-02-18 19:44] VITALS: BP 130/80; PULSE 104; RESP 17; TEMP 36.3; O2SAT 100
[2024-02-18 20:26] VITALS: BP 130/80; PULSE 104; RESP 17; TEMP 36.3; O2SAT 100
[2024-02-18] MEDS: Loratadine 10 MG TABLET PO (20:30)
[2024-02-18] MEDS: Doxycycline Monohydrate 100 MG CAPSULE PO (20:30)
[2024-02-19 18:48] LABS: Lyme Abs Screen <0.90 index
[2024-02-21 01:12] LABS: Babesia IgG <1:64 titer (<1:64); Babesia IgM <1:20 titer (<1:20)
[2024-02-21 02:19] LABS: A. Phagocytophilum Ab IgG <1:64 (<1:64); A. Phagocytophilum Ab IgM <1:20 (<1:20); E. Chaffeensis Ab IgG <1:64 (<1:64); E. Chaffeensis Ab IgM <1:20 (<1:20)
== END 2024-02-18 20:37 | disposition home or self-care (01) ==
PROVIDERS: Physician Assistant Medical; Emergency Provider Emergency Medicine; PCP Internal Medicine
DX: R21 Rash and other nonspecific skin eruption (principal); R00.0 Tachycardia, unspecified; Z79.899 Other long term (current) drug therapy
CPT/HCPCS: 36415; 80048; 80076; 85025; 86617; 86618; 86666; 86753; 93005; 99283; 99284

== ENCOUNTER → 2024-02-18 16:31 | Outpatient (BNV) | payer OTHER, SELFPAY | PROVIDERS: Emergency Provider Emergency Medicine; PCP Internal Medicine; Visit Provider Internal Medicine | DX: R00.0 Tachycardia, unspecified (principal) | CPT/HCPCS: 93010 ==

== ENCOUNTER 2024-04-23 10:06 | Outpatient (AMB) | payer OTHER, SELFPAY ==
[2024-04-23 10:14] VITALS: BP 106/70; PULSE 97; O2SAT 100; BMI 27.2
--- NOTE | 2024-04-23 10:14 | A.OFFPC_ITS ---
Vital Signs 04/23/24 10:14 Height 5 ft 2 in Weight 149 lb BMI 27.2 BP 106/70 Blood Pressure Location Lt brachial Position Sitting Pulse 97 Pulse Source Pulse Oximeter Pulse Oximetry (%) 100 Oxygen Delivery Method Room Air Intake Visit Reasons: [facility] [employer]- PE Intake Note: Pt is here today as a New Patient/ PE Allergies No Known Allergies Allergy (Unknown, Verified 04/23/24 10:40) Medication List - Last Reconciled 04/26/24 by Jaent Mckeon MD No Known Home Meds Tobacco use date assessed: 04/23/24 Dental Screening Dental Screen Date: 04/23/24 Did you have a dental visit in the last 12 months?: No Did you have a dental problem in the last 6 months where you did not have access to dental care?: No Was dental information given to patient?: Patient declined HPI [facility]- PE HPI Details 38-year-old Lady, new to practice, here today to establish care with a new PCP and for physical exam. She has history of rectal adenocarcinoma stage III, treated with chemoradiation, without surgery as patient refused to have a colostomy bag she initially had a rectal polyp that was 1st removed back in 07/23/2022 with pathology showing tubulovillous adenoma . A repeat colonoscopy done 09/02/2022 showed recurrence of the polyp , which flex sigmoidoscopy in 02/22/2023 again showed recurrent polyp , and biopsies showed tubulovillous adenoma with focal high-grade dysplasia. Patient had another colonoscopy on 06/24/2023 done at [facility] by Dr. Benítez, showed no evidence of recurrence. The area was treated with hybrid APC. A small polyp was noted in the ascending colon removed with a cold snare and pathology showed sessile serrated polyp. Patient however was still refusing surgery and is supposed to have a repeat colonoscopy done in 01/2024. [facility] Medical History (Updated 04/23/24 @ 10:54 by Janet Mckeon MD) Family history of thyroid disease in mother Rectal adenocarcinoma Anal fissure GI bleed Constipation Anemia Hemorrhoids Surgical History History of Family History Father Lung cancer Social History Household Members: Significant Other Household Members Other:: 3 kids Housing: House Alcohol intake: current Alcohol intake frequency: does not drink Patient Tobacco Use Status: Never used Tobacco e-Cigarette/Vaping Use: Never Used Current occupational status: employed Current occupation: Insurance Cognitive needs: No Hearing needs: No Vision needs: No Questionnaire PHQ-9 Over the last 2 weeks, how often have you been bothered by any of the following problems? 1. Little interest or pleasure in doing things: not at all 2. Feeling down, depressed, or hopeless: not at all 3. Trouble falling or staying asleep, or sleeping too much: not at all 4. Feeling tired or having little energy: not at all 5. Poor appetite or overeating: not at all 6. Feeling bad about yourself - or that you are a failure or have let yourself or your family down: not at all 7. Trouble concentrating on things, such as reading the newspaper or watching television: not at all 8. Moving or speaking so slowly that other people could have noticed. Or the opposite - being so fidgety or restless that you have been moving around a lot more than usual: not at all 9. Thoughts that you would be better off or of hurting yourself in some way: not at all Total score: 0 Depression Screening Interpretation: Negative Depression Screening Done: Yes 92663 - PHQ-9 Billing: Yes Source: Developed by Drs. Alejandro Keita, Taina Pugh, Rohan Martinez and colleagues, with an educational adam from [employer]. Thrive Questionnaire Date Thrive assessed: 04/23/24 I am a: Patient What is your living situation today?: I have a steady place to live Within the past 12 months, did the food you bought not last and you didn't have the money to get more?: Never true Within the past 12 months, did you worry whether your food would run out before you got money to buy more?: Never true Do you have trouble paying for medicines?: No Do you have trouble getting transportation to medical appointments?: No Do you have trouble paying your heating and electricity bill?: No Do you have trouble taking care of your child, family member or friend?: No Do you have trouble with day-to-day activities such as bathing, preparing meals, shopping, managing finances, etc.?: No Are you currently unemployed and looking for a job?: No Are you interested in more education?: No Please select the resources that you would like help with: None Currently or been in a relationship where the following occur: No concerns reported THRIVE Score: 0 AUDIT C Alcohol Use Questionnaire (AUDIT-C) 1. How often do you have a drink containing alcohol?: Monthly or less 2. How many drinks containing alcohol do you have on a typical day when you are drinking?: 1 or 2 3. How often do you have six or more drinks on one occasion?: Never Total Score: 1 ASHLEY-7 AMB Questionnaire ASHLEY-7 Date ASHLEY - 7 assessed: 04/23/24 Feeling nervous, anxious, or on edge: 0 = Not at all Not being able to stop or control worryin = Not at all Worrying too much about different things: 0 = Not at all Trouble relaxin = Not at all Being so restless that it is hard to sit still: 0 = Not at all Becoming easily annoyed or irritable: 0 = Not at all Feeling afraid as if something awful might happen: 0 = Not at all Total ASHLEY-7 score (0-4 normal; 5-9 mild; 10-14 moderate; 15-21 severe): 0 Source: Developed by Drs. Alejandro Keita, Taina Pugh, Rohan Martinez and colleagues, with an educational adam from [employer]. ASHLEY-7 Assessment Billing ASHLEY-7 Assessment Tool: ASHLEY-7 Assessment 77714 Review of Systems Const Reports no additional complaints and Denies fever(s) Eyes Reports no additional complaints ENT Reports no additional complaints Card Denies chest pain, Denies irregular heart rhythm, Denies dyspnea and Denies dyspnea on exertion Resp Denies cough, Denies dyspnea and Denies dyspnea on exertion GI Denies abdominal pain, Denies hematochezia, Denies change in bowel habits and D enies heartburn Reports no additional complaints Musc Denies back pain and Denies limited range of motion Skin/Breast Denies breast pain, Denies breast mass and Denies rash Neuro Reports no additional complaints Psych Denies depression and Denies mood swings Endo Reports no additional complaints Wero/Lymph Reports no additional complaints Aller/Immun Reports no additional complaints Physical exam (Primary Care) Vital Signs: Last Vital Signs Pulse 97 04/23/24 10:14 BP 106/70 04/23/24 10:14 Pulse Ox 100 04/23/24 10:14 Oxygen Delivery Method Room Air 04/23/24 10:14 BMI result Body Mass Index 27.2 Tobacco/Smoking Status: Tobacco use Status Tobacco use date assessed 04/23/24 04/23/24 10:24 Patient Tobacco Use Status Never used Tobacco 04/23/24 10:15 e-Cigarette/Vaping Use Never Used 04/23/24 10:15 PHQ-9: PHQ-9 Score PHQ-9: Total score 0 04/26/24 16:31 Depression Screening Interpretation: Negative Thrive Assessment: Date of Thrive Assessment Date Thrive assessed 04/23/24 04/23/24 10:24 Currently or been in a relationship where the following occur: No concerns reported Const General: comfortable, no acute distress and alert Orientation/consciousness: patient oriented x3 HENMT Ears: external ears normal, TM's normal bilaterally and EAC's normal General nose exam: Normal external nose present and No nasal discharge present Face and sinus: Yes face symmetric Mouth: Normal oral and palatal mucosa present, oropharynx normal and moist mucous membranes Eyes General: appearance normal, both eyes and all related structures Conjunctivae: conjunctivae normal Sclerae: sclerae normal Pupils: Equal, round and reactive pupils present EOM: EOMs intact bilaterally Neck Neck: Yes full ROM, Yes no lymphadenopathy and Yes supple Chest Breast/axilla palpation: normal palpation of the breasts Resp Effort & Inspection: normal respiratory effort and able to speak in complete sentences Auscultation: clear to auscultation bilaterally Cardio Rate: regular rate Rhythm: regular rhythm Heart sounds: S1 normal heart sound present and S2 normal heart sound present GI Palpation (GI): Soft to palpation, nontender and no masses Auscultation: normal bowel sounds Back/Spine/Pelvis Back: No back tenderness Skin General skin exam: no rashes or lesions noted Neuro General: patient oriented x3, gait normal, tone normal, moves all extremities, Normal light touch and pain sensation and no focal motor deficits Cranial nerves: Yes CN's II-XII intact bilaterally and Yes Equal, round and reactive pupils present Cognition (Neuro): normal cognition Extrem General: Yes full ROM, Yes no joint enlargement, Yes no clubbing, cyanosis or edema and Yes no calf tenderness Psych Appearance: grossly normal and well kempt Mental Status: mental status grossly normal Speech and movement: Normal speech and movement present Affect: normal affect Attitude: cooperative Thought process: Normal thought process present Thought content: Normal thought content present, suicidality and no homicidality Coding Level of Care Code Est Pt Prev Care 18-39y(50058) Diagnoses Annual visit for general adult medical examination with abnormal findings Z00.01 Encounter for counseling regarding advance directives Z71.89 History of rectal cancer Z85.048 Additional Codes ASHLEY-7 Assessment Billing - ASHLEY-7 Assessment Tool: ASHLEY-7 Assessment 32210 ([id number]) PHQ-9 - 64870 - PHQ-9 Billing: Yes ([id number]) Assessment & Plan Assessment & Plan (1) Annual visit for general adult medical examination with abnormal findings: Code(s): Z00.01 - Encounter for general adult medical examination with abnormal findings Plan: Will check appropriate labs. Recommended dental visit every 6 months and regular eye exams, at least every 2 years. Take adequate calcium in diet and vitamin-D 3 at 2000 IU per cap once a day, in addition to weight-bearing exercises to help maintain good muscle tone and weight control. Instructed to do self-breast exam, and recommended to get yearly mammogram, starting at age 40. Advised to follow-up with her OBGYN for routine Pap and pelvic exam. Declines vaccinations had Tdap in 2013 (2) Encounter for counseling regarding advance directives: Code(s): Z71.89 - Other specified counseling Plan: Initiated the conversation about Advanced Directives. Advanced Directives help patients prepare for current and future decisions about their medical treatment and place of care. Discussed with patient that it is a process where a patients current condition and prognosis are reviewed, their wishes for information regarding their illness are elicited, and likely medical dilemmas are presented and options discussed. Healthcare proxy form completed today. The form can be amended as needed, reviewed yearly and make changes as needed (3) History of rectal cancer: Code(s): Z85.048 - Personal history of other malignant neoplasm of rectum, rectosigmoid junction, and anus Plan: Followed at [facility] GI sees Dr. Benítez Orders: Orders Vitamin D 25-OH Total 04/23/24 R53.83 - Other fatigue, Z00.01 - Encounter for general adult medical examination with abnormal findings, Z13.220 - Encounter for screening for lipoid disorders, Z71.89 - Other specified counseling, Z83.49 - Family history of other endocrine, nutritional and metabolic diseases Lipid Panel 04/23/24 R53.83 - Other fatigue, Z00.01 - Encounter for general adult medical examination with abnormal findings, Z13.220 - Encounter for screening for lipoid disorders, Z71.89 - Other specified counseling, Z83.49 - Family history of other endocrine, nutritional and metabolic diseases TSH reflex Free T4 04/23/24 R53.83 - Other fatigue, Z00.01 - Encounter for general adult medical examination with abnormal findings, Z13.220 - Encounter for screening for lipoid disorders, Z71.89 - Other specified counseling, Z83.49 - Family history of other endocrine, nutritional and metabolic diseases
== END 2024-04-23 11:11 | disposition home or self-care (01) ==
PROVIDERS: PCP Internal Medicine; Visit Provider Internal Medicine
DX: Z00.01 Encounter for general adult medical examination with abnormal findings (principal); Z71.89 Other specified counseling; Z85.048 Personal history of other malignant neoplasm of rectum, rectosigmoid junction, and anus

== ENCOUNTER → 2024-04-23 10:06 | Outpatient (BNVA) | payer OTHER, SELFPAY | PROVIDERS: PCP Internal Medicine; Visit Provider Internal Medicine | DX: Z00.01 Encounter for general adult medical examination with abnormal findings (principal); R53.83 Other fatigue; Z71.89 Other specified counseling; Z83.49 Family history of other endocrine, nutritional and metabolic diseases; Z85.048 Personal history of other malignant neoplasm of rectum, rectosigmoid junction, and anus | CPT/HCPCS: 96127; 99395 ==